=== PATIENT | male | born 1980 | race Caucasian/White ===

== ENCOUNTER → 2016-07-12 | Outpatient (CLI) | payer OTHER ==
[~2016-07-12] MED LIST: AMOX500T PO; CEPH500C3 PO; IBUP-238; LORT5TAB
[2016-07-12 09:31] LABS: BACTERIA, URINE RARE /hpf; BLOOD, URINE MOD (NEG); GLUCOSE,URINE NEG (NEG); KETONE, URINE NEG (NEG); MUCUS URINE FEW /lpf (OCC); NITRITE,URINE NEG (NEG); PH, URINE 5.5 (5.0-8.5); SQUAMOUS EPITHELIAL CELL URINE <1 /hpf (0-5); URINE COLOR YELLOW (YELLW/STRAW)
[2016-07-12 10:07] LABS: BICARBONATE 29.5 MEQ/L (21.0-32.0)
[2016-07-12 10:16] LABS: CREAT 24 TIMED 282.9 MG/DL; URINE TOTAL PROTEIN TIMED 16.3 MG/DL
== END ==
LOC: CLAB 07-10 08:35
PROVIDERS: ATTEND Internal Medicine Nephrology
DX: R80.9 Proteinuria, unspecified (principal); R31.29 Other microscopic hematuria
CPT/HCPCS: 36415; 80069; 81001; 82575; 84157